=== PATIENT | female | born 1990 | race African-American/Black ===

== ENCOUNTER 2018-06-19 12:53 | Emergency (ER) | payer OTHER ==
[~2018-06-19] VITALS: Ht 157.5 cm; Wt 90.7 kg
[~2018-06-19 12:53] MED LIST: LIDOCAINE VISC100 M1 SWISH&SPIT; MACROBID 100 M100 M1 PO
[2018-06-19 13:27] LABS: INFLUENZA B ANTIGEN None Detected (None Detect)
[2018-06-19] MEDS ORDERED: VENTOLIN HFA 1818 GM INH (13:50)
[2018-06-19] MEDS ORDERED: OSELB75 PO (13:50)
[2018-06-19] MEDS ORDERED: MEDROLDOSEPACK PO (13:50)
[2018-06-19 14:07] LABS: ABSOLUTE EOSINOPHILS 0.1 thou/uL (0.0-0.7); ABSOLUTE LYMPHOCYTES 1.5 thou/uL (0.8-5.3); ABSOLUTE MONOCYTES 0.9 thou/uL (0.0-1.2); ABSOLUTE NEUTROPHILS 5.2 thou/uL (1.6-8.1); BASOPHILS 0.5 %; EOSINOPHILS 1.5 %; HEMATOCRIT 41.8 % (37.0-47.0); HEMOGLOBIN 13.8 gm/dL (12.0-15.0); MCH 26.8 pg (26.0-34.0); MCHC 33.1 g/dL (28.0-37.0); MONOCYTES 11.5 %; MPV 10.7 fl. (7.2-11.1); NUCLEATED RBCS 0 /100WBC; PLATELET COUNT* 158 thou/uL (150-400); POLYS 67.5 %; RBC 5.16 mil/uL (4.20-5.00); RDW-CV 13.2 % (10.5-14.5); WBC 7.8 thou/uL (4.0-11.0)
[2018-06-19 14:21] LABS: CALCIUM 8.9 mg/dL (8.5-10.1); CREATININE 0.7 mg/dL (0.6-1.3); POTASSIUM 4.1 mmol/L (3.5-5.1)
[2018-06-19 15:19] VITALS: BP 136/86
== END 2018-06-19 15:19 | disposition home or self-care (01) ==
LOC: M.ERS 12:53
PROVIDERS: Nurse Practitioner Family
DX: J10.1 Influenza due to other identified influenza virus with other respiratory manifestations (principal); E89.0 Postprocedural hypothyroidism; Z98.890 Other specified postprocedural states; F17.210 Nicotine dependence, cigarettes, uncomplicated